=== PATIENT | male | born 1945 | race Hispanic/Latino ===

== ENCOUNTER 2017-12-04 21:54 | Emergency (ER) | payer MEDICARE, BC ==
[2017-12-05 03:05] LABS: Bilirubin Negative (Negative); Blood, Urine Negative (Negative); Clarity CLEAR (Clear); Glucose, Urine (Dipstick) Negative (Negative); Leukocyte Negative (Negative); Nitrite Negative (Negative); Protein, Urine (Dipstick) 30 mg/dL (Neg-Trace); Specific Gravity, Urine 1.021 (1.002-1.036); Urobilinogen 0.2 mg/dL (0.2-1.0); pH, Urine 5.5 (5.0-9.0)
[2017-12-05 03:07] LABS: #Basophils 0.1 thou/uL (0.0-0.2); #Eosinphils 0.3 thou/uL (0.0-0.7); #Lymphocytes 2.4 thou/uL (1.20-3.40); #Monocytes 0.5 thou/uL (0.11-0.59); #Neutrophils 4.6 thou/uL (1.40-6.50); %Basophils 0.7 % (0.0-1.0); %Eosinophils 3.7 % (0.0-10.0); %Lymphocytes 30.7 % (21.0-51.0); %Monocytes 5.8 % (0.0-10.0); Hemoglobin 14.5 g/dL (14.0-18.0); Mean Corpuscular HGB CONC 34.6 g/dL (32.0-36.0); Mean Corpuscular Hemoglobin 33.7 pg (27.0-31.0); Mean Corpuscular Volume 97.5 fL (78.0-98.0); Mean Platelet Volume 9.5 fL (7.4-10.4); Platelet Count 157 thou/uL (130-400); RBC Distribution Width 12.7 % (11.5-14.5); White Blood Cell (WBC) Count 7.8 thou/uL (4.8-10.8)
[2017-12-05 03:08] LABS: Bacteria/HPF None Seen HPF (None Seen); Hyaline Casts/LPF 0-3 HYALINE CAST LPF (0-3 Hyaline); Pathc Cast-AUWi Flag 0.14 (0-2.49); RBC/HPF 0-3 HPF (0-3); Squamous Epithelial 0-3 HPF (0-3); WBC/HPF 0-3 HPF (0-3)
[2017-12-05 03:14] LABS: Amphetamine Not Detected (NotDetected); Barbiturates Screen Not Detected (NotDetected); Benzodiazepine Screen Not Detected (NotDetected); Cocaine Metabolite Screen Not Detected (NotDetected); Medtox Control Line Valid? VALID (VALID); Medtox Reader # READER 1; Methadone Not Detected (NotDetected); Methamphetamine Not Detected (NotDetected); Opiate Screen Not Detected (NotDetected); Oxycodone Screen Not Detected (NotDetected); Phencyclidine (PCP) Not Detected (NotDetected); THC/Cannabinoid Screen Not Detected (NotDetected); Tricyclic Screen Not Detected (NotDetected)
[2017-12-05 03:25] LABS: ALT (SGPT) 31 U/L (8-55); AST (SGOT) 27 U/L (5-34); Albumin 4.7 g/dL (3.4-4.8); Alkaline Phosphatase 56 U/L (40-150); Anion Gap 15 mmol/L (10-20); BUN (Urea Nitrogen) 18 mg/dL (8.4-25.7); Bilirubin, Total 0.8 mg/dL (0.2-1.2); CK (CPK) 343 U/L (30-200); Calc. Creatinine Clearance 0 mL/min (70-130); Calcium 9.3 mg/dL (7.8-10.44); Carbon Dioxide 22 mmol/L (23-31); Chloride 107 mmol/L (98-107); Estimated GFR-MDRD 73; Globulin 3.4 g/dL (2.4-3.5); Glucose 104 mg/dL (83-110); Potassium 4.5 mmol/L (3.5-5.1); Protein, Total 8.1 g/dL (5.8-8.1); Sodium 139 mmol/L (136-145)
[2017-12-05 03:26] LABS: Acetaminophen Less than 6.0 mcg/mL (10.0-30.0); Alcohol Less than 10 mg/dL (Less than 10); Salicylate Less than 8.0 mg/dL (15.0-30.0)
[2017-12-05] MEDS ORDERED: hydrALAZINE 20 MG/ML VIAL ONE (03:48)
--- NOTE | 2017-12-05 07:54 | RAD ---
LEFT FOOT 3 VIEWS: HISTORY: Pain. COMPARISON: None. FINDINGS: There are vascular calcifications. Lisfranc alignment is maintained. No fracture. No cortical irre gularity or periosteal reaction. IMPRESSION: 1. Unremarkable 3 views left foot. 2. Vascular calcifications are noted. POS: [facility]
--- NOTE | 2017-12-05 12:26 | CT ---
PRELIMINARY REPORT/[facility]/EMERGENTY AFTER-HOURS PROCEDURE CT Lumbar Spine With Intravenous Contrast CLINICAL HISTORY: 72 years old, male; Pain; Other: Left leg pain/weakness; Additional info: 72 year old m with hld, HTN who presents to the ed for left leg pain and left foot drop. Foot drop started 3 weeks ago. terry carr noticed it when he was trying to run and his toes kept rubbing on the ground. This has been consta nt since its onset. Tonight, while bowling, the patient started having left leg pain. Beginning mid t o upper left thigh and all the way down the front on his lower leg. He states that it is worsened wit h walking TECHNIQUE: Axial computed tomography images of the lumbar spine with intravenous contrast. COMPARISON: No relevant prior studies available. FINDINGS: On axial CT images, no definite acute fracture is visible. Sagittal and coronal reconstructions show no fracture or subluxation. Mild degenerative disc changes and moderate facet joint arthritis at multiple levels. Relatively mild broad-based bulging of the disc annulus from L2-3 through L5-S1. No definite/significant focal disc herniation by CT, MRI might be more sensitive if clinically indica chaparro. Possible cholelithiasis versus calcified gallbladder wall. Moderate aortic and other vascular calcifications. No evidence for abdominal aortic aneurysm. IMPRESSION: No definite acute fracture or subluxation by CT. Other findings discussed above. Thank you for allowing us to participate in the care of your patient. Dictated and Authenticated by: Gerald Hill MD 12/05/2017 5:57 AM Central Time ([place] & [place]) FINAL REPORT CT LUMBAR SPINE WITH CONTRAST: Date: 12/05/17 HISTORY: Left leg pain. Left foot drop. Symptoms started 3 weeks ago. COMPARISON: None. FINDINGS/IMPRESSION: This report is in agreement with the preliminary report by [facility]. Lumbar spine vertebral body height is maintained. There is no fracture or malalignment. There are deg enerative changes of the lumbar spine without high grade central canal stenosis. Varying degrees of m ild to moderate foraminal narrowing are noted. There is a left paracentral disc bulge at L5-S1, along with a generalized disc bulge at L4-L5. Evaluation is limited by technique. At T12-L1, there appears to be a broad based disc osteophyte complex with at least moderate central canal stenosis. MRI would be beneficial. Possible calcified gallbladder wall versus cholelithiasis is noted. Normal caliber appendix is identi fied. There is diverticulosis of the visualized sigmoid colon. No diverticulitis. Atherosclerosis of the aorta is identified. POS: [facility]
--- NOTE | 2017-12-05 12:27 | CT ---
PRELIMINARY REPORT/[facility]/EMERGENTY AFTER-HOURS PROCEDURE CT Head Without Intravenous Contrast CLINICAL HISTORY: 72 years old, male; Signs and symptoms; Walking, difficulty and weakness, extremity; Left; Additional info: 72 year old m with hld, HTN who presents to the ed for left leg pain and left foot drop. Foot drop started 3 weeks ago. first noticed it when he was trying to run and his toes kept rubbing on the ground. This has been constant since its onset. Tonight, while bowling, the patient st arted having left leg pain. Beginning mid to upper left thigh and all the way down the front on his l ower leg. He states that it is worsened with walking TECHNIQUE: Axial computed tomography images of the head/brain without intravenous contrast. COMPARISON: No relevant prior studies available. FINDINGS: No definite acute skull fracture. Included paranasal sinuses are essentially clear. No acute intracranial hemorrhage or mass effect. Ventricle size is normal for age. No definite acute infarct by CT. MRI could be more sensitive/specific for detection, as clinically di rected. IMPRESSION: No acute intracranial bleed or mass effect. No definite acute infarct by CT, see above. Thank you for allowing us to participate in the care of your patient. Dictated and Authenticated by: Gerald Hill MD 12/05/2017 5:39 AM Central Time ([place] & [place]) FINAL REPORT CT HEAD NONCONTRAST: DATE: 12/05/17. TIME: Performed on an emergency basis at 0422 hours. HISTORY: Weakness. Altered mental status. FINDINGS: NO comparison. There is no evidence of acute intracranial hemorrhage or infarct. Chronic ischemic s mall-vessel disease is apparent within the periventricular white matter of each cerebral hemisphere, most notably at the left frontal lobe. POS: [facility]
[2017-12-05] MEDS ORDERED: ISOVUE-370 76%-LOCM 1 ML ONE (14:18)
--- NOTE | 2017-12-07 19:40 | EKG ---
Test Reason : Blood Pressure : / mmHG Vent. Rate : 062 BPM Atrial Rate : 062 BPM P-R Int : 142 ms QRS Dur : 084 ms QT Int : 408 ms P-R-T Axes : 014 008 074 degrees QTc Int : 414 ms Normal sinus rhythm Nonspecific ST abnormality Abnormal ECG Confirmed by ALFREDO WHARTON M.D. ([id number]), magazine editor CYNDI VALENZUELA ([id number]) on 12/07/2017 7:38:28 PM Referred By: Confirmed By:ALFREDO WHARTON M.D.
== END 2017-12-05 06:08 | disposition home or self-care (01) ==
LOC: ERS 21:54
DX: M21.42 Flat foot [pes planus] (acquired), left foot (principal); E78.5 Hyperlipidemia, unspecified; I10 Essential (primary) hypertension; F41.9 Anxiety disorder, unspecified; F32.9 Major depressive disorder, single episode, unspecified; Z79.82 Long term (current) use of aspirin; Z79.899 Other long term (current) drug therapy
CPT/HCPCS: 36415; 70450; 72132; 80053; 80306; 80307; 81003; 81015; 82550; 85025; 85652; 86140; 87086; 93005; J0360

== ENCOUNTER 2017-12-25 07:39 | Outpatient (CLI) | payer MEDICARE, BC ==
--- NOTE | 2017-12-25 09:24 | MRI ---
NONCONTRAST MRI BRAIN: Date: 12/25/17 HISTORY: Left leg weakness. Patient complains of left foot drop for 1 week. COMPARISON: CT head on 12/05/17. FINDINGS: There are multiple scattered punctate, as well as patchy areas of increased FLAIR and T2-weighted sig nal intensity seen within the periventricular and subcortical white matter, which are nonspecific but likely reflective of chronic small vessel ischemic changes. There is no evidence of an acute infarct ion. Septum pellucidum and third ventricle are in the midline. There is mild cerebral volume loss. The dharmesh tricular system is normal in size, shape, and position for the degree of sulcal atrophy. Appropriate flow-voids are demonstrated at the base of the brain. Incidental note is made of a partially empty se lla turcica. The orbits, paranasal sinuses, and skull base have a normal MRI appearance. There is prominent pannus formation at the region of the transverse ligament at the articulation with the odontoid with anterior arch of C1. IMPRESSION: 1. No acute intracranial abnormalities demonstrated. 2. Nonspecific signal abnormalities within the cerebral hemispheres bilaterally, which are nonspecif ic, but likely attributable to chronic small vessel ischemic changes. 3. Mild cerebral volume loss. POS: [facility]
== END 2017-12-25 07:40 | disposition home or self-care (01) ==
LOC: TBSIIMAG 07:39
PROVIDERS: ATTEND Family Medicine
DX: R29.898 Other symptoms and signs involving the musculoskeletal system (principal); R90.89 Other abnormal findings on diagnostic imaging of central nervous system
CPT/HCPCS: 70551

== ENCOUNTER 2018-01-25 22:23 | Emergency (ER) | payer MEDICARE, BC ==
[2018-01-26] MEDS ORDERED: HYDROcodone/Acetaminophen 5/325 mg Tablet ONE (00:04)
[2018-01-26] MEDS ORDERED: Ketorolac Tromethamine 30 MG/ML VIAL ONE (01:27)
--- NOTE | 2018-01-26 10:00 | RAD ---
LUMBAR SPINE 3 VIEWS: Date: 01/25/18 HISTORY: Trauma. Injury to back. Comparison made to recent CT lumbar spine dated 12/05/17. FINDINGS: There is now anterior wedge compression of the L1 vertebra, which has occurred since the CT of . Mild irregularity of the anterior cortex with superior end plate depression is noted. Loss of ant erior height estimated in the 15-20% range. Posterior alignment is preserved. The other lumbar vertebra maintain height and alignment. Degenerati ve changes again noted with osteophytes and facet hypertrophy. IMPRESSION: Anterior wedge compression of L1 vertebra is now noted, new when compared to CT of 12/05/17. These findings were relayed to the charge nurse in the ER at the time of dictation. CODE CR. POS: [facility]
== END 2018-01-26 03:38 | disposition home or self-care (01) ==
LOC: ERS 22:23
DX: S32.019A Unspecified fracture of first lumbar vertebra, initial encounter for closed fracture (principal); F41.9 Anxiety disorder, unspecified; I10 Essential (primary) hypertension; E78.5 Hyperlipidemia, unspecified; F32.9 Major depressive disorder, single episode, unspecified; Z79.82 Long term (current) use of aspirin; Z79.899 Other long term (current) drug therapy; W19.XXXA Unspecified fall, initial encounter
CPT/HCPCS: 72100; 93005; 94760; 96372; J1885

== ENCOUNTER 2018-02-04 12:56 | Outpatient (CLI) | payer MEDICARE, BC ==
--- NOTE | 2018-02-04 14:56 | RAD ---
LUMBAR SPINE 3 VIEWS: Date: 02/04/18 HISTORY: Compression fracture. COMPARISON: Radiograph dated 01/26/18. FINDINGS: The compression fracture at L1 has similar anterior height loss, approximately 20-25%. No new acute s uperimposed fracture or malalignment. Mild narrowing L4-5 and L5-S1 disc spaces. IMPRESSION: Unchanged L1 compression fracture. POS: [facility]
== END 2018-02-04 12:57 | disposition home or self-care (01) ==
LOC: TBSIIMAG 12:56
PROVIDERS: ATTEND Neurological Surgery
DX: M48.56XD Collapsed vertebra, not elsewhere classified, lumbar region, subsequent encounter for fracture with routine healing (principal)
CPT/HCPCS: 72100

== ENCOUNTER 2018-02-13 15:33 | Outpatient (CLI) | payer MEDICARE, BC ==
--- NOTE | 2018-02-13 18:45 | MRI ---
MRI CERVICAL SPINE 02/13/18 HISTORY: Myelopathy, G95.9. Multiplanar and multisequence noncontrast enhanced MRI images cervical spine obtained. MRI images demonstrate extensive motion artifact which significantly degrades the quality of this exa m. C1-2: Unremarkable. C2-3: Unremarkable. C3-4: There is a mild broad based disc bulge without evidence of significant central stenosis. The ne ural foramen are patent. C4-5: Disc desiccation is seen. There is a broad based mild disc bulge with minimal but not significa nt degree of central stenosis. There is minimal bilateral neural foraminal narrowing. C5-6: Disc desiccation is seen. There is a broad based disc bulge resulting in minimal but not signif icant degree of central stenosis. There is moderate bilateral C5-6 neural foraminal narrowing due to uncovertebral osteophyte hypertrophy. C6-7: Unremarkable. C7-T1: Unremarkable. IMPRESSION: Broad based central disc bulge with neural foraminal narrowing as described above. No significant neri dence of cord compression seen. No significant myelomalacic changes seen. Exam quality is less than o ptimum due to patient motion. POS: [facility]
== END 2018-02-13 15:34 | disposition home or self-care (01) ==
LOC: SCSMRI 15:33
PROVIDERS: ATTEND Psychiatry & Neurology Neurology
DX: M50.01 Cervical disc disorder with myelopathy, high cervical region (principal); M48.02 Spinal stenosis, cervical region
CPT/HCPCS: 72141

== ENCOUNTER 2018-03-03 15:16 | Outpatient (CLI) | payer MEDICARE, BC ==
--- NOTE | 2018-03-03 19:44 | MRI ---
MRI THORACIC SPINE WITHOUT CONTRAST: 03/03/2018 HISTORY: Myelopathy. Pain. TECHNIQUE: Multiplanar, multisequence MR imaging of the thoracic spine is provided with and without contrast. FINDINGS: There is a vertebral body fracture involving the L1 level. The fracture line involves the posterior cortex with mild retropulsion, consistent with a burst fracture of L1, an unstable fracture. This fr acture was seen on lumbar spine radiographs performed on 02/04/2018. The degree of vertebral body he ight loss, anteriorly, at L1, is estimated at 20%, similar when compared to the lumbar spine radiogra phs performed on 02/04/2018. Increased T2 signal intensity, on the basis of edema, extends into the pedicles bilaterally at L1. No discrete fracture is seen involving the pedicles, but assessment woul d be better performed via CT. STIR imaging demonstrates no additional area of osseous marrow edema. No acute fracture is seen invo lving the thoracic spine. There is no anterolisthesis or retrolisthesis noted. There is no significant central canal or neural foraminal stenosis noted within the thoracic spine. There is no focal area of signal abnormality identified within the thoracic cord. IMPRESSION: Edema persists within the L1 burst fracture. There is also edema within the bilateral pedicles. Ded icated CT examination of the lumbar spine is assessed to evaluate the full extent of the lumbar spine fracture. No significant central canal or neural foraminal stenosis is seen within the thoracic spi ne. MENDEL Mathis made aware at the time of interpretation on 03/03/2018. POS: [facility]
== END 2018-03-03 15:17 | disposition home or self-care (01) ==
LOC: SCSMRI 15:16
PROVIDERS: ATTEND Psychiatry & Neurology Neurology
DX: G95.9 Disease of spinal cord, unspecified (principal); S32.011A Stable burst fracture of first lumbar vertebra, initial encounter for closed fracture
CPT/HCPCS: 72146

== ENCOUNTER 2018-03-04 14:01 | Outpatient (CLI) | payer MEDICARE, BC ==
--- NOTE | 2018-03-04 14:44 | RAD ---
TWO-THREE VIEWS LUMBAR SPINE SERIES: Comparison: 02-04-18 Indication: Fall with low back pain. FINDINGS: Stable mild to moderate anterior wedge compression fracture of L1. Alignment is grossly stable. Multi level endplate degenerative changes and facet osteoarthritis is again seen. There is atherosclerosis incidentally noted. Radiopaque densities overlie the pelvis bilaterally. IMPRESSION: Stable mild to moderate anterior L1 wedge compression fracture. POS: [facility]
== END 2018-03-04 14:02 | disposition home or self-care (01) ==
LOC: TBSIIMAG 14:01
PROVIDERS: ATTEND Physician Assistant
DX: M48.56XA Collapsed vertebra, not elsewhere classified, lumbar region, initial encounter for fracture (principal)
CPT/HCPCS: 72100

== ENCOUNTER 2018-03-14 13:11 | Outpatient (CLI) | payer MEDICARE, BC ==
--- NOTE | 2018-03-14 15:43 | MRI ---
MRI LUMBAR SPINE WITHOUT CONTRAST: HISTORY: M48.56XA. M21.372. Compression fracture, left foot drop. COMPARISON: Lumbar spine radiograph from 03/04/2018. FINDINGS: Similar appearance of the A3 AO spine classification incomplete burst fracture superior end plate of L1 with unchanged anterior height loss as well as retropulsion. There is narrowing of the ventral CS F space with abutment of the anterior cord. Improving edema of the posterior elements. No new acute superimposed fracture or malalignment. The conus medullaris terminates near the inferior end plate of L1. Levels are as follows: T12-L1: There is posterior superior displacement of the posterior superior end plate of L1 narrowing the ventral CSF space abutting the anterior cord. No significant neural foraminal narrowing. L1-2: Mild increased disk signal. No disk protrusion. Mild facet arthropathy. No significant neur al foraminal or spinal canal narrowing. L2-3: Low-grade circumferential disk bulge. Mild hypertrophic facet changes. Mild bilateral neural foraminal narrowing. There is mild increased posterior epidural fat. Spinal canal measures approxi mately 6 mm. Bilateral subforaminal posterior disk-osteophyte complexes are small. L3-4: Mild disk desiccation. There are moderate left and mild right-sided subforaminal posterior di sk-osteophyte complexes. Moderate bilateral neural foraminal narrowing. Moderate facet arthropathy. There is abutment of the exiting and traversing left and right nerve roots. L4-5: Mild disk desiccation. Moderate-sized bilateral subforaminal posterior disk-osteophyte comple xes. Moderate fact arthropathy. Moderate bilateral neural foraminal narrowing with abutment of both the exiting and traversing nerve roots. L5-S1: Mild disk desiccation. There is a central annular fissure. Moderate bilateral subforaminal and posterior disk-osteophyte complexes with moderate facet arthrosis. Moderate bilateral neural for aminal narrowing with abutment of both exiting and traversing nerve roots. IMPRESSION: 1. Moderately advanced spondylosis as described above primarily involving nerve root abutment at mul tiple levels. 2. Similar appearance of the AO spine thoracolumbar classification A3 incomplete burst fracture of L 1. There is posterior displacement of the posterior superior end plate of L1 with abutment of the an terior cord. POS: [facility]
== END 2018-03-14 13:12 | disposition home or self-care (01) ==
LOC: SCSMRI 13:11
PROVIDERS: ATTEND Neurological Surgery
DX: M21.372 Foot drop, left foot (principal); M48.56XA Collapsed vertebra, not elsewhere classified, lumbar region, initial encounter for fracture; M47.816 Spondylosis without myelopathy or radiculopathy, lumbar region; S32.011A Stable burst fracture of first lumbar vertebra, initial encounter for closed fracture
CPT/HCPCS: 72148

== ENCOUNTER 2018-12-08 10:09 | Outpatient (CLI) | payer MEDICARE, BC ==
--- NOTE | 2018-12-08 13:07 | MRI ---
MRI OF THE THORACIC SPINE WITHOUT CONTRAST: INDICATION: History of fall with mid to low back pain. COMPARISON: Prior MRI of the thoracic spine dated 03/03/2018. FINDINGS: There has been interval healing of the wedge compression abnormality at L1. No new fracture is evide nt. The spinal cord demonstrates a normal signal intensity. Remote retropulsed bone fragments from the posterior superior margin of the L1 compression fracture in addition to a disk-osteophyte complex causing mild ventral effacement of the distal spinal cord without definite cord signal abnormality. The remaining intervertebral levels of the thoracic spine demonstrate no significant central canal or neural foraminal narrowing. There is minimal multilevel disk degenerative and facet osteoarthritic change. No bone marrow signal abnormality is evident. Visualized aspects of the paravertebral soft tissues a ppear within normal limits. IMPRESSION: 1. Interval healing of the previously seen wedge compression abnormality of L1. Some retropulsed delisa ne fragments in addition to a disk-osteophyte complex at T12-L1 induces mild central canal narrowing with mild ventral effacement of the distal spinal cord without definite cord signal abnormality. 2. Mild multilevel spondylosis of the thoracic spine. 3. No acute fracture demonstrated. POS: [facility]
== END 2018-12-08 10:10 | disposition home or self-care (01) ==
LOC: SCSMRI 10:09
PROVIDERS: ATTEND Psychiatry & Neurology Neurology
DX: M47.24 Other spondylosis with radiculopathy, thoracic region (principal); M25.78 Osteophyte, vertebrae; M48.05 Spinal stenosis, thoracolumbar region; R93.7 Abnormal findings on diagnostic imaging of other parts of musculoskeletal system
CPT/HCPCS: 72146

== ENCOUNTER 2021-02-18 15:48 | Inpatient (IN) | payer MEDICARE, BC ==
[2021-02-18 18:15] VITALS: BMI 31.9
[2021-02-18] MEDS ORDERED: Ondansetron ODT 4 MG TAB PO PRN (20:03)
[2021-02-18] MEDS ORDERED: Ondansetron PF 4 MG/2 ML Vial IVP PRN (20:03)
[2021-02-18 21:20] LABS: Bilirubin Negative (Negative); Blood, Urine 2+ (Negative); Clarity Turbid (Clear); Glucose, Urine (Dipstick) Normal (Negative); Ketone, Urine Negative (Negative); Leukocyte 25 Leu/uL (Negative); Nitrite Negative (Negative); Protein, Urine (Dipstick) 70 mg/dL (Neg-Trace); RBC/HPF 0-3 HPF (0-3); Specific Gravity, Urine 1.023 (1.002-1.036); Squamous Epithelial 0-3 HPF (0-3); Urobilinogen Normal mg/dL (Less than 2); pH, Urine 5.5 (5.0-9.0)
[2021-02-18 21:27] LABS: Bacteria/HPF 2+ HPF (None Seen)
[2021-02-18 21:30] LABS: Urine Culture Reflex Yes Yes
[2021-02-18] MEDS: Sodium Chloride 0.9% 1,000 ML IV SCH (22:26)
[2021-02-19] MEDS ORDERED: Cefepime 2 GM in Sodium Chloride 0.9% 100 ML IVPB SCH ×3 (00:17→02:00)
[2021-02-19] MEDS ORDERED: Enoxaparin Sodium 40 MG/0.4 ML SYRINGE SC SCH (09:00)
[2021-02-19] MEDS: Sodium Chloride 0.9% 1,000 ML IV SCH (15:02)
[2021-02-19] MEDS: Cefepime 2 GM in Sodium Chloride 0.9% 100 ML IVPB SCH (15:02)
[2021-02-20] MEDS: Acetaminophen 650 MG Suppository PR PRN ×2 (00:13→04:08)
[2021-02-20] MEDS: Labetalol HCl 100 MG/20 ML VIAL SLOW IVP PRN ×3 (00:41→20:55)
[2021-02-20] MEDS: Sodium Chloride 0.9% 1,000 ML IV SCH (01:47)
[2021-02-20] MEDS: Cefepime 2 GM in Sodium Chloride 0.9% 100 ML IVPB SCH ×2 (01:47→13:42)
[2021-02-20 07:43] LABS: #Basophils 0.3 thou/uL (0.0-0.2); #Lymphocytes 0.7 thou/uL (1.20-3.40); #Monocytes 0.4 thou/uL (0.11-0.59); #Neutrophils 9.9 thou/uL (1.40-6.50); %Basophils 2.3 % (0.0-1.0); %Eosinophils 0.4 % (0.0-10.0); %Lymphocytes 6.2 % (21.0-51.0); %Monocytes 3.3 % (0.0-10.0); %Neutrophils 87.8 % (42.0-75.0); Hemoglobin 13.1 g/dL (14.0-18.0); Mean Corpuscular HGB CONC 33.3 g/dL (32.0-36.0); Mean Corpuscular Hemoglobin 32.2 pg (27.0-31.0); Mean Corpuscular Volume 96.4 fL (78.0-98.0); Mean Platelet Volume 8.6 fL (7.4-10.4); Platelet Count 123 thou/uL (130-400); Red Blood Cell (RBC) Count 4.09 mill/uL (4.70-6.10); White Blood Cell (WBC) Count 11.2 thou/uL (4.8-10.8)
[2021-02-20 08:03] LABS: Anion Gap 15 mmol/L (10-20); BUN (Urea Nitrogen) 15 mg/dL (8.4-25.7); Calc. Creatinine Clearance 91 mL/min (70-130); Calcium 8.8 mg/dL (7.8-10.44); Carbon Dioxide 19 mmol/L (23-31); Chloride 110 mmol/L (98-107); Glucose 92 mg/dL (83-110); Potassium 3.9 mmol/L (3.5-5.1); Sodium 140 mmol/L (136-145)
[2021-02-20] MEDS ORDERED: Furosemide 20 MG/2 ML VIAL SLOW IVP SCH (10:15)
[2021-02-20] MEDS: Acetaminophen 325 MG TAB PO PRN ×2 (15:00→23:23)
[2021-02-20] MEDS: Baclofen 10 MG TAB PO SCH ×2 (17:59→20:24)
[2021-02-20] MEDS: Gabapentin 300 MG CAP PO SCH (20:24)
[2021-02-20] MEDS ORDERED: Methyl Salicylate/Menthol 85 GM TUBE TOP PRN (22:59)
[2021-02-21] MEDS: Cefepime 2 GM in Sodium Chloride 0.9% 100 ML IVPB SCH ×2 (02:39→13:07)
[2021-02-21 05:51] LABS: #Eosinphils 0.2 thou/uL (0.0-0.7); #Lymphocytes 1.1 thou/uL (1.20-3.40); #Monocytes 0.5 thou/uL (0.11-0.59); #Neutrophils 7.1 thou/uL (1.40-6.50); %Basophils 0.2 % (0.0-1.0); %Eosinophils 2.6 % (0.0-10.0); %Lymphocytes 12.3 % (21.0-51.0); %Monocytes 5.6 % (0.0-10.0); %Neutrophils 79.4 % (42.0-75.0); Hemoglobin 12.8 g/dL (14.0-18.0); Mean Corpuscular HGB CONC 34.5 g/dL (32.0-36.0); Mean Corpuscular Hemoglobin 33.1 pg (27.0-31.0); Mean Platelet Volume 8.6 fL (7.4-10.4); Platelet Count 123 thou/uL (130-400); Red Blood Cell (RBC) Count 3.87 mill/uL (4.70-6.10)
[2021-02-21 06:05] LABS: Anion Gap 13 mmol/L (10-20); BUN (Urea Nitrogen) 20 mg/dL (8.4-25.7); Calc. Creatinine Clearance 77 mL/min (70-130); Calcium 8.9 mg/dL (7.8-10.44); Carbon Dioxide 22 mmol/L (23-31); Chloride 108 mmol/L (98-107); Glucose 89 mg/dL (83-110); Potassium 3.5 mmol/L (3.5-5.1); Sodium 139 mmol/L (136-145)
[2021-02-21] MEDS ORDERED: BIOTIN 5 MG PO SCH (09:00)
[2021-02-21] MEDS: Gabapentin 300 MG CAP PO SCH ×2 (09:07→20:47)
[2021-02-21] MEDS: Aspirin 81 mg Enteric Coated Tablet PO SCH (09:07)
[2021-02-21] MEDS: Citalopram 20 MG TAB PO SCH (09:08)
[2021-02-21] MEDS: Atorvastatin Calcium 10 MG TAB PO SCH (09:08)
[2021-02-21] MEDS: Amlodipine 5 MG TAB PO SCH (09:08)
[2021-02-21] MEDS: Ascorbic Acid 500 mg Chewable Tablet PO SCH (09:08)
[2021-02-21] MEDS: Baclofen 10 MG TAB PO SCH ×3 (09:08→20:47)
[2021-02-21] MEDS: Metoprolol Tartrate 50 MG TAB PO SCH (09:08)
[2021-02-21] MEDS: Cholecalciferol 1,000 UNITS (25 MCG) TAB PO SCH (09:08)
[2021-02-21] MEDS: Cyanocobalamin (Vitamin B-12) 1,000 MCG TAB PO SCH (09:08)
[2021-02-21] MEDS: Fish Oil 1,000 MG CAP PO SCH (09:09)
[2021-02-21] MEDS: RILUZOLE 50 MG PO SCH (16:30)
[2021-02-22] MEDS: Cefepime 2 GM in Sodium Chloride 0.9% 100 ML IVPB SCH (01:31)
[2021-02-22] MEDS: RILUZOLE 50 MG PO SCH (06:07)
[2021-02-22 08:19] VITALS: TEMP 98.2
[2021-02-22] MEDS: Atorvastatin Calcium 10 MG TAB PO SCH (08:26)
[2021-02-22] MEDS: Citalopram 20 MG TAB PO SCH (08:26)
[2021-02-22] MEDS: Baclofen 10 MG TAB PO SCH (08:26)
[2021-02-22] MEDS: Aspirin 81 mg Enteric Coated Tablet PO SCH (08:26)
[2021-02-22] MEDS: Fish Oil 1,000 MG CAP PO SCH (08:26)
[2021-02-22] MEDS: Gabapentin 300 MG CAP PO SCH (08:45)
[2021-02-22] MEDS: Cyanocobalamin (Vitamin B-12) 1,000 MCG TAB PO SCH (08:45)
[2021-02-22] MEDS: Metoprolol Tartrate 50 MG TAB PO SCH (08:45)
[2021-02-22] MEDS: Ascorbic Acid 500 mg Chewable Tablet PO SCH (08:45)
[2021-02-22] MEDS: Amlodipine 5 MG TAB PO SCH (08:45)
[2021-02-22] MEDS: Cholecalciferol 1,000 UNITS (25 MCG) TAB PO SCH (08:45)
[2021-02-22 09:56] VITALS: BP 137/67
== END 2021-02-22 14:00 | disposition home health service (06) | DRG 871 ==
LOC: IMCU/EMU 15:48 → ONC 02-19 12:23
PROVIDERS: ADMIT Internal Medicine; ATTEND Family Medicine
DX: A41.51 Sepsis due to Escherichia coli [E. coli] (principal); J69.0 Pneumonitis due to inhalation of food and vomit; I21.A1 Myocardial infarction type 2; J96.01 Acute respiratory failure with hypoxia; G12.21 Amyotrophic lateral sclerosis; E87.2 Acidosis; G82.20 Paraplegia, unspecified; N17.9 Acute kidney failure, unspecified; N39.0 Urinary tract infection, site not specified; Z20.822 Contact with and (suspected) exposure to COVID-19; I10 Essential (primary) hypertension; E78.2 Mixed hyperlipidemia; R65.20 Severe sepsis without septic shock; F41.9 Anxiety disorder, unspecified; F32.A Depression, unspecified; I65.22 Occlusion and stenosis of left carotid artery; E86.0 Dehydration; Z74.01 Bed confinement status; Z88.5 Allergy status to narcotic agent; Z88.8 Allergy status to other drugs, medicaments and biological substances; Z79.82 Long term (current) use of aspirin; Z79.899 Other long term (current) drug therapy
CPT/HCPCS: 36415; 71045; 74230; 80048; 81001; 85025; 87086; 94640; J0692; J1940; J3490; J7050; J7620

== ENCOUNTER 2021-04-19 06:23 | Day surgery (SDC) | payer OTHER ==
[2021-04-17 09:50] VITALS: BMI 34.4
[2021-04-19 12:31] LABS: SARS-CoV-2 PCR by NAA Not Detected (NotDetected)
[2021-04-19] MEDS ORDERED: Fentanyl 100 MCG/2 ML VIAL ONE (13:01)
[2021-04-19] MEDS ORDERED: ceFAZolin 2 GM/Dextrose 50 ML IVPB ONE (13:47)
[2021-04-19] MEDS ORDERED: Lidocaine 1% PF 5 ML VIAL ONE (13:58)
[2021-04-19] MEDS ORDERED: PROPOFOL 200 MG/20 ML VIAL ONE (13:58)
== END 2021-04-19 16:20 | disposition home or self-care (01) ==
LOC: SDC 06:23
PROVIDERS: ATTEND Internal Medicine Gastroenterology
PROC: 0DH63UZ Insertion of Feeding Device into Stomach, Percutaneous Approach (ICD-10-PCS; principal; 2021-04-19)
DX: R13.10 Dysphagia, unspecified (principal); G12.21 Amyotrophic lateral sclerosis; M19.90 Unspecified osteoarthritis, unspecified site; I10 Essential (primary) hypertension; E78.00 Pure hypercholesterolemia, unspecified; I25.10 Atherosclerotic heart disease of native coronary artery without angina pectoris; Z79.82 Long term (current) use of aspirin; Z79.899 Other long term (current) drug therapy; Z88.5 Allergy status to narcotic agent; Z88.8 Allergy status to other drugs, medicaments and biological substances; Z95.5 Presence of coronary angioplasty implant and graft; Z20.822 Contact with and (suspected) exposure to COVID-19
CPT/HCPCS: J0690; J3010; U0003; U0005

== ENCOUNTER 2021-05-05 23:22 | Inpatient (IN) | payer BC, MEDICARE ==
[2021-05-06] MEDS ORDERED: cefTRIAXone\\ROCEPHIN 2 GM VIAL ONE (00:05)
[2021-05-06 00:15] LABS: #Lymphocytes 0.6 thou/uL (1.20-3.40); #Monocytes 0.5 thou/uL (0.11-0.59); #Neutrophils 8.3 thou/uL (1.40-6.50); %Basophils 0.3 % (0.0-1.0); %Eosinophils 0.4 % (0.0-10.0); %Lymphocytes 6.8 % (21.0-51.0); %Monocytes 5.1 % (0.0-10.0); %Neutrophils 87.5 % (42.0-75.0); Hemoglobin 12.1 g/dL (14.0-18.0); Mean Corpuscular HGB CONC 33.2 g/dL (32.0-36.0); Mean Corpuscular Hemoglobin 33.2 pg (27.0-31.0); Mean Platelet Volume 8.5 fL (7.4-10.4); Platelet Count 181 thou/uL (130-400); Red Blood Cell (RBC) Count 3.65 mill/uL (4.70-6.10); White Blood Cell (WBC) Count 9.4 thou/uL (4.8-10.8)
[2021-05-06 00:36] LABS: ALT (SGPT) 10 U/L (8-55); AST (SGOT) 11 U/L (5-34); Albumin 4.2 g/dL (3.4-4.8); Alkaline Phosphatase 49 U/L (40-110); Anion Gap 14 mmol/L (10-20); BUN (Urea Nitrogen) 27 mg/dL (8.4-25.7); Bilirubin, Total 0.5 mg/dL (0.2-1.2); Calc. Creatinine Clearance 0 mL/min (70-130); Calcium 9.1 mg/dL (7.8-10.44); Carbon Dioxide 21 mmol/L (23-31); Chloride 105 mmol/L (98-107); Globulin 3.3 g/dL (2.4-3.5); Glucose 133 mg/dL (83-110); Protein, Total 7.5 g/dL (5.8-8.1); Sodium 135 mmol/L (136-145)
[2021-05-06] MEDS ORDERED: Vancomycin 1.5 GRAM/300 ML BAG 1.5 GM in Premix Bag 1 BAG IVPB SCH (00:45)
[2021-05-06 01:31] LABS: SARS-CoV-2 NAA Rapid Test Not Detected (NotDetected)
[2021-05-06] MEDS ORDERED: Ondansetron ODT 4 MG TAB SL PRN (02:15)
[2021-05-06] MEDS ORDERED: Acetaminophen 325 MG TAB PO PRN (02:15)
[2021-05-06] MEDS ORDERED: Ondansetron PF 4 MG/2 ML Vial IVP PRN (02:15)
[2021-05-06 03:00] LABS: Bilirubin Negative (Negative); Blood, Urine Negative (Negative); Clarity Clear (Clear); Glucose, Urine (Dipstick) Normal (Negative); Ketone, Urine Negative (Negative); Leukocyte Negative Leu/uL (Negative); Nitrite Negative (Negative); Protein, Urine (Dipstick) 10 mg/dL (Neg-Trace); Specific Gravity, Urine 1.015 (1.002-1.036); Urobilinogen Normal mg/dL (Less than 2)
[2021-05-06 03:59] VITALS: BMI 40.0
[2021-05-06 04:16] LABS: Lactic Acid 1.9 mmol/L (0.5-2.2)
[2021-05-06] MEDS ORDERED: Azithromycin 500 MG in Sodium Chloride 0.9% 250 ML 250 ML IVPB SCH (05:00)
[2021-05-06] MEDS: Cefepime 2 GM in Sodium Chloride 0.9% 100 ML IVPB SCH ×2 (09:11→21:45)
[2021-05-06] MEDS: Enoxaparin Sodium 40 MG/0.4 ML SYRINGE SC SCH (09:12)
[2021-05-06] MEDS: guaiFENesin ER 600 MG TAB PO SCH ×2 (09:12→22:18)
[2021-05-06] MEDS: Amlodipine 10 MG TAB PO SCH (21:44)
[2021-05-06] MEDS: Metoprolol Tartrate 50 MG TAB PO SCH (21:45)
[2021-05-06] MEDS: Guaifenesin DM 100-10/5 ML UDCUP PO PRN (22:55)
[2021-05-06] MEDS: Acetaminophen 650 MG/20.3 ML UDCUP PO PRN (22:55)
[2021-05-07 05:27] LABS: #Basophils 0.1 thou/uL (0.0-0.2); #Eosinphils 0.3 thou/uL (0.0-0.7); #Lymphocytes 1.3 thou/uL (1.20-3.40); #Monocytes 0.7 thou/uL (0.11-0.59); #Neutrophils 8.6 thou/uL (1.40-6.50); %Basophils 0.5 % (0.0-1.0); %Lymphocytes 11.5 % (21.0-51.0); %Monocytes 6.6 % (0.0-10.0); %Neutrophils 78.5 % (42.0-75.0); Hemoglobin 12.2 g/dL (14.0-18.0); Mean Corpuscular HGB CONC 33.4 g/dL (32.0-36.0); Mean Corpuscular Hemoglobin 33.8 pg (27.0-31.0); Mean Platelet Volume 8.7 fL (7.4-10.4); Platelet Count 171 thou/uL (130-400); RBC Distribution Width 14.1 % (11.5-14.5); Red Blood Cell (RBC) Count 3.61 mill/uL (4.70-6.10); White Blood Cell (WBC) Count 10.9 thou/uL (4.8-10.8)
[2021-05-07 05:53] LABS: Anion Gap 14 mmol/L (10-20); BUN (Urea Nitrogen) 25 mg/dL (8.4-25.7); Calc. Creatinine Clearance 99 mL/min (70-130); Calcium 9.1 mg/dL (7.8-10.44); Carbon Dioxide 22 mmol/L (23-31); Chloride 106 mmol/L (98-107); Glucose 99 mg/dL (83-110); Potassium 4.8 mmol/L (3.5-5.1); Sodium 137 mmol/L (136-145)
[2021-05-07] MEDS: hydrALAZINE 20 MG/ML VIAL SLOW IVP PRN ×2 (06:53→21:50)
[2021-05-07] MEDS: Cefepime 2 GM in Sodium Chloride 0.9% 100 ML IVPB SCH ×2 (08:27→20:11)
[2021-05-07] MEDS: Metoprolol Tartrate 50 MG TAB PO SCH ×2 (08:28→20:09)
[2021-05-07] MEDS: Citalopram 20 MG TAB PO SCH (08:28)
[2021-05-07] MEDS: Guaifenesin DM 100-10/5 ML UDCUP PO PRN (08:28)
[2021-05-07] MEDS: Aspirin Chewable 81 MG TAB PO SCH (08:29)
[2021-05-07] MEDS: Acetaminophen 650 MG/20.3 ML UDCUP PO PRN ×2 (08:29→20:17)
[2021-05-07] MEDS: Enoxaparin Sodium 40 MG/0.4 ML SYRINGE SC SCH (08:29)
[2021-05-07] MEDS ORDERED: CYANOCOBALAMIN 1000 MCG SL SCH (09:00)
[2021-05-07] MEDS ORDERED: PATIENT'S HOME MEDICATION PO SCH ×2 (12:17→12:18)
[2021-05-07] MEDS: GABAPENTIN 250 MG/5 ML PO SCH (12:31)
[2021-05-07] MEDS: RILUZOLE PO SCH (12:32)
[2021-05-07] MEDS ORDERED: Furosemide 40 MG/4 ML VIAL SLOW IVP SCH (17:30)
[2021-05-07] MEDS: Amlodipine 10 MG TAB PO SCH (20:09)
[2021-05-08] MEDS ORDERED: Ondansetron PF 4 MG/2 ML Vial IVP PRN (00:35)
[2021-05-08] MEDS: hydrALAZINE 20 MG/ML VIAL SLOW IVP PRN (06:30)
[2021-05-08] MEDS: Citalopram 20 MG TAB PO SCH (09:34)
[2021-05-08] MEDS: Aspirin Chewable 81 MG TAB PO SCH (09:34)
[2021-05-08] MEDS: Cefepime 2 GM in Sodium Chloride 0.9% 100 ML IVPB SCH (09:34)
[2021-05-08] MEDS: Metoprolol Tartrate 50 MG TAB PO SCH (09:34)
[2021-05-08] MEDS: Enoxaparin Sodium 40 MG/0.4 ML SYRINGE SC SCH (09:34)
[2021-05-08 12:23] VITALS: BP 186/80; TEMP 98.1
== END 2021-05-08 13:42 | disposition home or self-care (01) | DRG 871 ==
LOC: ERS 23:22 → T4-B 05-06 02:07
PROVIDERS: ADMIT Student in an Organized Health Care Education/Training Program; ATTEND Internal Medicine
DX: A41.9 Sepsis, unspecified organism (principal); J69.0 Pneumonitis due to inhalation of food and vomit; G12.21 Amyotrophic lateral sclerosis; E87.1 Hypo-osmolality and hyponatremia; E87.2 Acidosis; Z20.822 Contact with and (suspected) exposure to COVID-19; E78.00 Pure hypercholesterolemia, unspecified; I10 Essential (primary) hypertension; E78.2 Mixed hyperlipidemia; F41.9 Anxiety disorder, unspecified; D50.9 Iron deficiency anemia, unspecified; I65.22 Occlusion and stenosis of left carotid artery; F32.A Depression, unspecified; Z88.5 Allergy status to narcotic agent; Z88.8 Allergy status to other drugs, medicaments and biological substances; Z86.16 Personal history of COVID-19
CPT/HCPCS: 0240U; 36415; 71045; 80048; 80053; 81003; 83605; 83880; 84484; 85025; 87040; 87086; 93005; 94640; 96365; 96367; J0360; J0456; J0692; J0696; J1650; J1940; J2405; J3370; J3490; J7050; J7620

== ENCOUNTER 2021-09-06 11:28 | Inpatient (IN) | payer MEDICARE, BC ==
[2021-09-06 12:01] LABS: #Basophils 0.1 thou/uL (0.0-0.2); #Eosinphils 0.4 thou/uL (0.0-0.7); #Lymphocytes 1.7 thou/uL (1.20-3.40); #Monocytes 0.5 thou/uL (0.11-0.59); #Neutrophils 14.7 thou/uL (1.40-6.50); %Basophils 0.3 % (0.0-1.0); %Eosinophils 2.6 % (0.0-10.0); %Lymphocytes 9.6 % (21.0-51.0); %Monocytes 2.8 % (0.0-10.0); %Neutrophils 84.7 % (42.0-75.0); Hemoglobin 13.6 g/dL (14.0-18.0); Mean Corpuscular HGB CONC 33.8 g/dL (32.0-36.0); Mean Corpuscular Hemoglobin 32.9 pg (27.0-31.0); Mean Corpuscular Volume 97.6 fL (78.0-98.0); Mean Platelet Volume 8.6 fL (7.4-10.4); Platelet Count 146 thou/uL (130-400); RBC Distribution Width 13.1 % (11.5-14.5); Red Blood Cell (RBC) Count 4.12 mill/uL (4.70-6.10); White Blood Cell (WBC) Count 17.4 thou/uL (4.8-10.8)
[2021-09-06 12:17] LABS: Anion Gap 16 mmol/L (10-20); BUN (Urea Nitrogen) 21 mg/dL (8.4-25.7); Calc. Creatinine Clearance 0 mL/min (70-130); Carbon Dioxide 24 mmol/L (23-31); Chloride 102 mmol/L (98-107); Potassium 4.6 mmol/L (3.5-5.1); Sodium 137 mmol/L (136-145)
[2021-09-06 12:18] LABS: ALT (SGPT) 13 U/L (8-55); AST (SGOT) 17 U/L (5-34); Albumin 4.5 g/dL (3.4-4.8); Alkaline Phosphatase 67 U/L (40-110); Bilirubin, Total 0.9 mg/dL (0.2-1.2); Calcium 9.3 mg/dL (7.8-10.44); Globulin 3.4 g/dL (2.4-3.5); Glucose 108 mg/dL (83-110); Protein, Total 7.9 g/dL (5.8-8.1)
[2021-09-06] MEDS ORDERED: Cefepime 2 GM VIAL ONE (12:20)
[2021-09-06] MEDS ORDERED: VANCOMYCIN 2 GRAM/500 ML BAG 2 GM in Premix Bag 1 BAG IVPB SCH (12:30)
[2021-09-06 12:42] LABS: SARS-CoV-2 NAA Rapid Test Not Detected (NotDetected)
[2021-09-06] MEDS ORDERED: Acetaminophen 325 MG TAB PO PRN (13:51)
[2021-09-06] MEDS ORDERED: Acetaminophen 650 MG Suppository PR PRN (13:51)
[2021-09-06] MEDS ORDERED: Ondansetron PF 4 MG/2 ML Vial IVP PRN (13:51)
[2021-09-06] MEDS ORDERED: GUAIFENESIN SF SOLN 200 MG/10 ML UDCUP PO PRN (14:01)
[2021-09-06 14:52] LABS: Lactic Acid 2.1 mmol/L (0.5-2.2)
[2021-09-06] MEDS ORDERED: Benzonatate 100 MG CAP PO SCH ×2 (15:00→21:00)
[2021-09-06] MEDS ORDERED: Baclofen 10 MG TAB PO SCH (15:00)
[2021-09-06] MEDS ORDERED: Acetaminophen 325 MG TAB PER TUBE PRN (16:30)
[2021-09-06] MEDS ORDERED: GUAIFENESIN SF SOLN 200 MG/10 ML UDCUP PER TUBE PRN (16:30)
[2021-09-06 18:26] VITALS: BMI 30.6
[2021-09-06 18:29] LABS: Bacteria/HPF None Seen HPF (None Seen); Bilirubin Negative (Negative); Blood, Urine Trace (Negative); Clarity Clear (Clear); Glucose, Urine (Dipstick) Normal (Negative); Ketone, Urine Negative (Negative); Leukocyte Negative Leu/uL (Negative); Nitrite Negative (Negative); Protein, Urine (Dipstick) 10 mg/dL (Neg-Trace); RBC/HPF 0-3 HPF (0-3); Squamous Epithelial 0-3 HPF (0-3); Urobilinogen Normal mg/dL (Less than 2); WBC/HPF 0-3 HPF (0-3); pH, Urine 7.5 (5.0-9.0)
[2021-09-06 18:31] LABS: Urine Culture Reflex No No
[2021-09-06] MEDS: Gabapentin 300 MG CAP FS SCH (22:21)
[2021-09-06] MEDS: Metoprolol Tartrate 25 MG TAB PER TUBE SCH (22:22)
[2021-09-06] MEDS: Heparin 5,000 UNITS/ML VIAL SC SCH (22:22)
[2021-09-06] MEDS: Baclofen 10 MG TAB PER TUBE SCH (22:22)
[2021-09-06] MEDS: Amlodipine 5 MG TAB PER TUBE SCH (22:23)
[2021-09-07] MEDS ORDERED: Methyl Salicylate/Menthol 85 GM TUBE TOP PRN (00:02)
[2021-09-07 04:50] LABS: Anion Gap 13 mmol/L (10-20); BUN (Urea Nitrogen) 17 mg/dL (8.4-25.7); Calc. Creatinine Clearance 68 mL/min (70-130); Calcium 8.5 mg/dL (7.8-10.44); Carbon Dioxide 23 mmol/L (23-31); Chloride 107 mmol/L (98-107); Glucose 75 mg/dL (83-110); Potassium 4.5 mmol/L (3.5-5.1); Sodium 138 mmol/L (136-145)
[2021-09-07 04:54] LABS: #Eosinphils 0.5 thou/uL (0.0-0.7); #Lymphocytes 1.1 thou/uL (1.20-3.40); #Monocytes 0.5 thou/uL (0.11-0.59); #Neutrophils 7.6 thou/uL (1.40-6.50); %Basophils 0.2 % (0.0-1.0); %Eosinophils 4.8 % (0.0-10.0); %Lymphocytes 11.3 % (21.0-51.0); %Monocytes 4.7 % (0.0-10.0); %Neutrophils 79.1 % (42.0-75.0); Hemoglobin 12.2 g/dL (14.0-18.0); Mean Corpuscular HGB CONC 33.2 g/dL (32.0-36.0); Mean Corpuscular Hemoglobin 33.5 pg (27.0-31.0); Mean Platelet Volume 8.6 fL (7.4-10.4); Platelet Count 135 thou/uL (130-400); RBC Distribution Width 13.3 % (11.5-14.5); Red Blood Cell (RBC) Count 3.63 mill/uL (4.70-6.10); White Blood Cell (WBC) Count 9.7 thou/uL (4.8-10.8)
[2021-09-07] MEDS: Gabapentin 300 MG CAP FS SCH ×2 (08:45→21:07)
[2021-09-07] MEDS: Heparin 5,000 UNITS/ML VIAL SC SCH ×2 (08:45→21:11)
[2021-09-07] MEDS: Aspirin Chewable 81 MG TAB PER TUBE SCH (08:45)
[2021-09-07] MEDS: Metoprolol Tartrate 25 MG TAB PER TUBE SCH ×2 (08:46→21:06)
[2021-09-07] MEDS: Cyanocobalamin (Vitamin B-12) 1,000 MCG TAB PER TUBE SCH (08:46)
[2021-09-07] MEDS: Citalopram 20 MG TAB PER TUBE SCH (08:46)
[2021-09-07] MEDS: Baclofen 10 MG TAB PER TUBE SCH ×3 (08:46→21:08)
[2021-09-07] MEDS: RILUZOLE 50 MG PO SCH ×2 (14:38→21:25)
[2021-09-07] MEDS: Amlodipine 5 MG TAB PER TUBE SCH (21:07)
[2021-09-08] MEDS: Aspirin Chewable 81 MG TAB PER TUBE SCH (08:21)
[2021-09-08] MEDS: Baclofen 10 MG TAB PER TUBE SCH ×3 (08:21→20:17)
[2021-09-08] MEDS: Cyanocobalamin (Vitamin B-12) 1,000 MCG TAB PER TUBE SCH (08:21)
[2021-09-08] MEDS: Metoprolol Tartrate 25 MG TAB PER TUBE SCH ×2 (08:21→20:15)
[2021-09-08] MEDS: Gabapentin 300 MG CAP FS SCH ×2 (08:21→20:16)
[2021-09-08] MEDS: Citalopram 20 MG TAB PER TUBE SCH (08:21)
[2021-09-08] MEDS: RILUZOLE 50 MG PO SCH ×2 (08:22→20:19)
[2021-09-08] MEDS: Heparin 5,000 UNITS/ML VIAL SC SCH ×2 (08:22→20:26)
[2021-09-08 16:18] VITALS: TEMP 97.3
[2021-09-08] MEDS: Amlodipine 5 MG TAB PER TUBE SCH ×2 (20:15→20:17)
[2021-09-08 20:20] VITALS: BP 193/91
== END 2021-09-08 21:45 | disposition home or self-care (01) | DRG 177 ==
LOC: ERS 11:28 → 2NO 13:41
PROVIDERS: ADMIT Internal Medicine; ATTEND Internal Medicine
PROC: 0D20XUZ Change Feeding Device in Upper Intestinal Tract, External Approach (ICD-10-PCS; principal; 2021-09-06)
DX: J69.0 Pneumonitis due to inhalation of food and vomit (principal); J96.01 Acute respiratory failure with hypoxia; R53.2 Functional quadriplegia; E87.2 Acidosis; K94.23 Gastrostomy malfunction; G12.21 Amyotrophic lateral sclerosis; R65.10 Systemic inflammatory response syndrome (SIRS) of non-infectious origin without acute organ dysfunction; Z20.822 Contact with and (suspected) exposure to COVID-19; Y83.3 Surgical operation with formation of external stoma as the cause of abnormal reaction of the patient, or of later complication, without mention of misadventure at the time of the procedure; R13.10 Dysphagia, unspecified; E78.5 Hyperlipidemia, unspecified; F41.9 Anxiety disorder, unspecified; E78.2 Mixed hyperlipidemia; Z88.5 Allergy status to narcotic agent; Z88.8 Allergy status to other drugs, medicaments and biological substances; Z74.01 Bed confinement status; Z86.16 Personal history of COVID-19; Z79.899 Other long term (current) drug therapy
CPT/HCPCS: 36415; 71045; 71250; 74177; 80048; 80053; 81001; 83605; 83880; 84484; 85025; 87040; 87633; 93005; 94640; 96365; 96367; J0692; J1644; J1956; J3370; J7030; J7620

== ENCOUNTER 2021-10-22 23:36 | Emergency (ER) | payer MEDICARE, BC ==
[2021-10-23 00:16] LABS: #Eosinphils 0.7 thou/uL (0.0-0.7); #Lymphocytes 0.8 thou/uL (1.20-3.40); #Monocytes 0.3 thou/uL (0.11-0.59); #Neutrophils 6.6 thou/uL (1.40-6.50); %Basophils 0.4 % (0.0-1.0); %Eosinophils 8.2 % (0.0-10.0); %Lymphocytes 9.4 % (21.0-51.0); %Monocytes 3.9 % (0.0-10.0); %Neutrophils 78.1 % (42.0-75.0); Hemoglobin 12.7 g/dL (14.0-18.0); Mean Corpuscular HGB CONC 34.2 g/dL (32.0-36.0); Mean Corpuscular Hemoglobin 34.1 pg (27.0-31.0); Mean Corpuscular Volume 99.6 fL (78.0-98.0); Platelet Count 154 thou/uL (130-400); RBC Distribution Width 13.6 % (11.5-14.5); Red Blood Cell (RBC) Count 3.73 mill/uL (4.70-6.10); White Blood Cell (WBC) Count 8.5 thou/uL (4.8-10.8)
[2021-10-23 00:31] LABS: ALT (SGPT) 10 U/L (8-55); AST (SGOT) 17 U/L (5-34); Albumin 3.9 g/dL (3.4-4.8); Alkaline Phosphatase 63 U/L (40-110); Anion Gap 16 mmol/L (10-20); BUN (Urea Nitrogen) 22 mg/dL (8.4-25.7); Bilirubin, Total 0.6 mg/dL (0.2-1.2); Calc. Creatinine Clearance 0 mL/min (70-130); Calcium 8.9 mg/dL (7.8-10.44); Carbon Dioxide 22 mmol/L (23-31); Chloride 104 mmol/L (98-107); Estimated GFR 76; Globulin 3.3 g/dL (2.4-3.5); Glucose 115 mg/dL (83-110); Potassium 4.7 mmol/L (3.5-5.1); Protein, Total 7.2 g/dL (5.8-8.1); Sodium 137 mmol/L (136-145)
[2021-10-23 03:04] LABS: Troponin I 0.019 ng/mL (< 0.028)
== END 2021-10-23 03:38 | disposition home or self-care (01) ==
LOC: ERS 23:36
DX: U07.1 COVID-19 (principal); I10 Essential (primary) hypertension; E78.5 Hyperlipidemia, unspecified
CPT/HCPCS: 36415; 71045; 80053; 84484; 85025; 94640; J7620

== ENCOUNTER 2022-01-26 18:10 | Emergency (ER) | payer MEDICARE, BC ==
[2022-01-26 18:36] LABS: #Eosinphils 0.5 thou/uL (0.0-0.7); #Lymphocytes 1.4 thou/uL (1.20-3.40); #Monocytes 0.4 thou/uL (0.11-0.59); #Neutrophils 6.7 thou/uL (1.40-6.50); %Basophils 0.2 % (0.0-1.0); %Eosinophils 5.6 % (0.0-10.0); %Lymphocytes 15.4 % (21.0-51.0); %Monocytes 4.6 % (0.0-10.0); %Neutrophils 74.1 % (42.0-75.0); Hemoglobin 13.6 g/dL (14.0-18.0); Mean Corpuscular HGB CONC 32.7 g/dL (32.0-36.0); Mean Corpuscular Hemoglobin 32.2 pg (27.0-31.0); Mean Corpuscular Volume 98.5 fl (78.0-98.0); Mean Platelet Volume 8.9 fL (7.4-10.4); Platelet Count 137 thou/uL (130-400); Red Blood Cell (RBC) Count 4.22 mill/uL (4.70-6.10)
[2022-01-26 18:51] LABS: ALT (SGPT) 13 U/L (8-55); AST (SGOT) 18 U/L (5-34); Albumin 4.2 g/dL (3.4-4.8); Alkaline Phosphatase 71 U/L (40-110); Anion Gap 13 mmol/L (10-20); BUN (Urea Nitrogen) 13 mg/dL (8.4-25.7); Bilirubin, Total 0.6 mg/dL (0.2-1.2); Calc. Creatinine Clearance 0 mL/min (70-130); Calcium 9.4 mg/dL (7.8-10.44); Carbon Dioxide 25 mmol/L (23-31); Chloride 105 mmol/L (98-107); Estimated GFR 73; Globulin 3.2 g/dL (2.4-3.5); Glucose 94 mg/dL (83-110); Potassium 4.2 mmol/L (3.5-5.1); Protein, Total 7.4 g/dL (5.8-8.1); Sodium 139 mmol/L (136-145)
[2022-01-26 20:08] LABS: Bacteria/HPF 3+ HPF (None Seen); Bilirubin Negative (Negative); Blood, Urine Negative (Negative); Clarity Clear (Clear); Glucose, Urine (Dipstick) Normal (Negative); Ketone, Urine Negative (Negative); Leukocyte 75 Leu/uL (Negative); Nitrite Negative (Negative); Protein, Urine (Dipstick) Negative (Neg-Trace); RBC/HPF 0-3 HPF (0-3); Specific Gravity, Urine 1.008 (1.002-1.036); Squamous Epithelial 0-3 HPF (0-3); Urobilinogen Normal mg/dL (Less than 2)
== END 2022-01-26 21:00 | disposition home or self-care (01) ==
LOC: ERS 18:10
DX: N39.0 Urinary tract infection, site not specified (principal); E78.5 Hyperlipidemia, unspecified; I10 Essential (primary) hypertension
CPT/HCPCS: 71045; 80053; 81003; 81015; 85025; 87077; 87086; 93005

== ENCOUNTER 2022-07-28 12:20 | Emergency (ER) | payer MEDICARE, OTHER ==
[~2022-07-28 12:20] MED LIST: GASTROGRAFIN 30 ML BOT ONE
== END 2022-07-28 14:13 | disposition home or self-care (01) ==
LOC: ERS 12:20
DX: K94.23 Gastrostomy malfunction (principal); E78.5 Hyperlipidemia, unspecified; I10 Essential (primary) hypertension
CPT/HCPCS: 74018; Q9963

== ENCOUNTER 2023-01-16 17:28 | Inpatient (IN) | payer MEDICARE, BC ==
[~2023-01-16 17:28] MED LIST changes: -GASTROGRAFIN 30 ML BOT ONE; +Iopamidol-370 76% 500 ML MDV (1 ML CHARGE) ONE
[2023-01-16] MEDS ORDERED: Acetaminophen 650 MG Suppository ONE (17:40)
[2023-01-16] MEDS ORDERED: Cefepime 2 GM VIAL ONE (17:49)
[2023-01-16 17:50] LABS: Base Excess (BEa) -6.7 mEq/L (-2.0 to +3.0); CO2 Tension 38.7 mmHg (35.0-45.0); Carboxyhemoglobin (COHb) 3.2 gm% (0.0-3.0); Hematocrit-ABG 35 % (42.0-52.0); Hemoglobin (Hb) 11.8 g/dL (14.0-18.0); Potassium - ABG Lab 4.41 mmol/L (3.70-5.30); pH, Arterial 7.309 (7.35-7.45)
[2023-01-16 17:54] LABS: ALV-art Gradient 134.925 mmHg (0-20); Puncture Site LBA
[2023-01-16] MEDS ORDERED: Vancomycin (BATCH) 1.25 GM in Premix 1 BAG IVPB SCH (18:00)
[2023-01-16 18:11] LABS: #Eosinphils 0.3 thou/uL (0.0-0.7); #Monocytes 0.3 thou/uL (0.11-0.59); #Neutrophils 9.4 thou/uL (1.40-6.50); %Basophils 0.3 % (0.0-1.0); %Eosinophils 2.7 % (0.0-10.0); %Monocytes 2.6 % (0.0-10.0); %Neutrophils 89.1 % (42.0-75.0); Hematocrit 39.4 % (42.0-52.0); Hemoglobin 12.7 g/dL (14.0-18.0); Mean Corpuscular HGB CONC 32.2 g/dL (32.0-36.0); Mean Corpuscular Hemoglobin 32.7 pg (27.0-31.0); Mean Corpuscular Volume 101.5 fl (78.0-98.0); Mean Platelet Volume 11.1 fL (7.4-10.4); Platelet Count 153 10x3/uL (130-400); RBC Distribution Width 16.7 % (11.5-14.5); Red Blood Cell (RBC) Count 3.88 mill/uL (4.70-6.10); White Blood Cell (WBC) Count 10.6 10x3/uL (4.8-10.8)
[2023-01-16 18:37] LABS: Troponin I 0.031 ng/mL (< 0.028)
[2023-01-16 18:40] LABS: ALT (SGPT) 12 U/L (8-55); AST (SGOT) 15 U/L (5-34); Albumin 3.8 g/dL (3.4-4.8); Alkaline Phosphatase 81 U/L (40-110); Anion Gap 20 mmol/L (10-20); BUN (Urea Nitrogen) 58 mg/dL (8.4-25.7); Bilirubin, Total 0.5 mg/dL (0.2-1.2); Calc. Creatinine Clearance 0 mL/min (70-130); Calcium 8.4 mg/dL (7.8-10.44); Carbon Dioxide 18 mmol/L (23-31); Chloride 108 mmol/L (98-107); Estimated GFR 70; Globulin 2.5 g/dL (2.4-3.5); Glucose 69 mg/dL (83-110); Lipase 60 U/L (8-78); Magnesium 1.7 mg/dL (1.6-2.6); Potassium 4.7 mmol/L (3.5-5.1); Protein, Total 6.3 g/dL (5.8-8.1); Sodium 141 mmol/L (136-145)
[2023-01-16 19:00] LABS: SARS-CoV-2 NAA Rapid Test Not Detected (NotDetected)
[2023-01-16] MEDS ORDERED: fentaNYL 50 mcg/mL 1 mL Vial ONE ×2 (19:49→22:48)
[2023-01-16] MEDS ORDERED: Ketorolac Tromethamine 30 MG/ML VIAL ONE (20:26)
[2023-01-16 21:14] LABS: Lactic Acid 2.7 mmol/L (0.5-2.2)
[2023-01-16 21:59] LABS: Bacteria/HPF 4+ HPF (None Seen); Bilirubin Negative (Negative); Blood, Urine 3+ (Negative); CAUTI Indications for Culture Alt mental st,lethar; Clarity Turbid (Clear); Glucose, Urine (Dipstick) Normal (Negative); Ketone, Urine Negative (Negative); Leukocyte 250 Leu/uL (Negative); Nitrite 2+ (Negative); Protein, Urine (Dipstick) 70 mg/dL (Neg-Trace); RBC/HPF Greater than 50 HPF (0-3); Renal Epithelial 0-3 HPF (None Seen); Specific Gravity, Urine 1.035 (1.002-1.036); Squamous Epithelial 0-3 HPF (0-3); Urine Culture Reflex Yes Yes; Urobilinogen Normal mg/dL (Less than 2); WBC/HPF 21-50 HPF (0-3); pH, Urine 5.5 (5.0-9.0)
[2023-01-16 22:12] LABS: Troponin I 0.409 ng/mL (< 0.028)
[2023-01-16] MEDS ORDERED: NOREPINEPHRINE 8 MG/250 ML-D5W 0 ML ONE (22:44)
[2023-01-16] MEDS ORDERED: Midazolam HCl 2 mg/2 ml Vial ONE (22:48)
[2023-01-16] MEDS ORDERED: Norepinephrine 4 MG/4 ML VIAL ONE (23:14)
[2023-01-16] MEDS ORDERED: Rocuronium Bromide 10 MG/ML (10ML VIAL) ONE (23:38)
[2023-01-16] MEDS ORDERED: PHENYLEPHRINE-NS 100 MCG/ML 10 ML SYRINGE ONE (23:38)
[2023-01-16] MEDS ORDERED: PROPOFOL 200 MG/20 ML VIAL ONE (23:38)
[2023-01-17] MEDS ORDERED: Acetaminophen 650 MG Suppository PR PRN (00:22)
[2023-01-17] MEDS ORDERED: Electrolyte Replacement Protocol 1 EACH IVPB PRN (00:22)
[2023-01-17] MEDS ORDERED: Ipratropium/Albuterol 3 ML NEB NEB PRN ×2 (00:22→21:14)
[2023-01-17] MEDS ORDERED: Ventilator Sedation Protocol 1 EACH FS SCH (00:30)
[2023-01-17] MEDS ORDERED: Propofol 1,000 MG/100 ML VIAL IV PRN (00:30)
[2023-01-17] MEDS ORDERED: Dextrose 5%-Lactated Ringers 1,000 ML IV SCH ×2 (00:30→01:00)
[2023-01-17] MEDS ORDERED: Morphine 2 MG/ML VIAL SLOW IVP PRN (00:30)
[2023-01-17] MEDS ORDERED: Propofol BOLUS 1,000 MG/100 ML VIAL IV PRN (00:30)
[2023-01-17] MEDS ORDERED: Fentanyl BOLUS 250 ML IVPB PRN (00:30)
[2023-01-17] MEDS: NOREPINEPHRINE 8 MG/250 ML-D5W 250 ML IVPB PRN ×4 (00:33→15:17)
[2023-01-17 00:51] LABS: CO2 Tension 35.8 mmHg (35.0-45.0); Calcium, Ionized (arterial) 1.09 mmol/L (1.12-1.30); Carboxyhemoglobin (COHb) 2.5 gm% (0.0-3.0); Hematocrit-ABG 32 % (42.0-52.0); O2 Tension (PaO2), arterial 375.9 mmHg (> 70.0); Potassium - ABG Lab 3.97 mmol/L (3.70-5.30); pH, Arterial 7.228 (7.35-7.45)
[2023-01-17 00:52] LABS: Actual Bicarbonate (HCO3a) 14.6 mEq/L (22-28); Puncture Site RRA
[2023-01-17] MEDS ORDERED: Magnesium 2 GM/50 ML(in water) 2 GM in Premix 1 BAG IVPB SCH (01:00)
[2023-01-17] MEDS ORDERED: Sodium Bicarb 50 MEQ/50 ML Abboject 8.4% SYRINGE IVP SCH (01:15)
[2023-01-17 01:44] LABS: Lactic Acid 3.2 mmol/L (0.5-2.2)
[2023-01-17] MEDS ORDERED: Lactated Ringer's 500 ML IV SCH ×2 (01:45→02:30)
[2023-01-17 01:52] LABS: Troponin I 0.813 ng/mL (< 0.028)
[2023-01-17] MEDS ORDERED: Hydrocortisone Sod Succ/PF 100 mg/2 ml Vial IVP SCH (02:30)
[2023-01-17] MEDS ORDERED: Vasopressin 20 UNITS in Sodium Chloride 0.9% 50 ML IV SCH (03:00)
[2023-01-17 05:05] LABS: Troponin I 0.867 ng/mL (< 0.028)
[2023-01-17] MEDS: Fentanyl CADD 100 ML IV SCH (05:30)
[2023-01-17] MEDS ORDERED: Cefepime 2 GM in Sodium Chloride 0.9% 100 ML IVPB SCH (06:00)
[2023-01-17 08:11] LABS: Actual Bicarbonate (HCO3a) 16.9 mEq/L (22-28); Base Excess (BEa) -7.9 mEq/L (-2.0 to +3.0); CO2 Tension 32.2 mmHg (35.0-45.0); Calcium, Ionized (arterial) 1.09 mmol/L (1.12-1.30); Carboxyhemoglobin (COHb) 2.3 gm% (0.0-3.0); Hematocrit-ABG 32 % (42.0-52.0); Hemoglobin (Hb) 10.8 g/dL (14.0-18.0); O2 Tension (PaO2), arterial 129.4 mmHg (> 70.0); Potassium - ABG Lab 4.05 mmol/L (3.70-5.30); pH, Arterial 7.339 (7.35-7.45)
[2023-01-17 08:12] LABS: Puncture Site LBA
[2023-01-17 08:36] LABS: Lactic Acid 4.6 mmol/L (0.5-2.2)
[2023-01-17] MEDS ORDERED: FLU VACC QS2023(65UP)/MF59C/PF 60 MCG/0.5 ML SYRINGE IM ONE (09:00)
[2023-01-17] MEDS ORDERED: Vancomycin 1 GM in Premix 1 BAG IVPB SCH (09:00)
[2023-01-17] MEDS: Famotidine/PF 20 mg/2ml Vial SLOW IVP SCH ×2 (09:04→20:49)
[2023-01-17] MEDS: Hydrocortisone Sod Succ/PF 100 mg/2 ml Vial IVP SCH ×3 (09:04→20:49)
[2023-01-17] MEDS: Baclofen 10 MG TAB PO SCH ×2 (09:51→20:27)
[2023-01-17] MEDS: Citalopram 20 MG TAB PER TUBE SCH ×2 (09:52→20:27)
[2023-01-17] MEDS: Gabapentin 300 MG CAP PER TUBE SCH ×3 (09:54→23:55)
[2023-01-17] MEDS ORDERED: Vancomycin (BATCH) 1.5 GM in Premix 1 BAG IVPB SCH (18:00)
[2023-01-17] MEDS: Cefepime 1 GM in Sodium Chloride 0.9% 100 ML IVPB SCH (18:01)
[2023-01-17] MEDS: Lorazepam 2 MG/ML VIAL SLOW IVP PRN (20:49)
[2023-01-18] MEDS: Hydrocortisone Sod Succ/PF 100 mg/2 ml Vial IVP SCH ×4 (03:04→22:03)
[2023-01-18 04:39] LABS: Mean Corpuscular HGB CONC 33.3 g/dL (32.0-36.0); Mean Corpuscular Hemoglobin 32.4 pg (27.0-31.0); Mean Corpuscular Volume 97.3 fl (78.0-98.0); Mean Platelet Volume 10.9 fL (7.4-10.4); Platelet Count 152 10x3/uL (130-400); RBC Distribution Width 17.3 % (11.5-14.5); Red Blood Cell (RBC) Count 2.99 mill/uL (4.70-6.10); White Blood Cell (WBC) Count 40.2 10x3/uL (4.8-10.8)
[2023-01-18 05:07] LABS: ALT (SGPT) 13 U/L (8-55); AST (SGOT) 25 U/L (5-34); Alkaline Phosphatase 75 U/L (40-110); Anion Gap 13 mmol/L (10-20); BUN (Urea Nitrogen) 43 mg/dL (8.4-25.7); Bilirubin, Total 0.3 mg/dL (0.2-1.2); Calc. Creatinine Clearance 69 mL/min (70-130); Carbon Dioxide 21 mmol/L (23-31); Chloride 111 mmol/L (98-107); Estimated GFR 81; Globulin 2.1 g/dL (2.4-3.5); Glucose 140 mg/dL (83-110); Potassium 3.4 mmol/L (3.5-5.1); Protein, Total 5.1 g/dL (5.8-8.1); Sodium 142 mmol/L (136-145)
[2023-01-18 05:12] LABS: Delete Auto Diff?? YES; Manual Diff?? YES
[2023-01-18] MEDS: Cefepime 1 GM in Sodium Chloride 0.9% 100 ML IVPB SCH ×2 (05:38→17:40)
[2023-01-18] MEDS: Gabapentin 300 MG CAP PER TUBE SCH ×3 (05:38→21:13)
[2023-01-18 06:12] LABS: Band 45 % (5-11); CellaVision Operator ID LAB.JMM; Lymphocytes 1 % (21-51); Macrocytosis SLIGHT = 6-15 cells HPF (0-5); Neutrophil 55 % (42-75); Platelet Adequacy Comment Platelets Normal; Smudge Cells 10.9 %; Total Cell Count 101
[2023-01-18] MEDS: Fentanyl CADD 100 ML IV SCH (07:59)
[2023-01-18] MEDS: Sertraline 100 MG TAB PO SCH (08:02)
[2023-01-18] MEDS: Famotidine/PF 20 mg/2ml Vial SLOW IVP SCH ×2 (08:02→21:13)
[2023-01-18] MEDS: Potassium Chloride 20 MEQ in Premix 1 BAG IVPB SCH ×2 (08:03→09:35)
[2023-01-18] MEDS: busPIRone HCl 5 MG TAB PER TUBE SCH ×2 (10:21→21:13)
[2023-01-18 12:11] LABS: O2 Tension (PaO2), arterial 30.6 mmHg (> 70.0)
[2023-01-18 12:28] LABS: Hematocrit 29.1 % (42.0-52.0); Hemoglobin 9.7 g/dL (14.0-18.0)
[2023-01-18] MEDS: NOREPINEPHRINE 8 MG/250 ML-D5W 250 ML IVPB PRN (12:38)
[2023-01-19] MEDS: Hydrocortisone Sod Succ/PF 100 mg/2 ml Vial IVP SCH ×4 (02:44→21:11)
[2023-01-19 04:12] LABS: Hematocrit 27.1 % (42.0-52.0); Mean Corpuscular HGB CONC 33.2 g/dL (32.0-36.0); Mean Corpuscular Hemoglobin 32.6 pg (27.0-31.0); Mean Corpuscular Volume 98.2 fl (78.0-98.0); Mean Platelet Volume 10.8 fL (7.4-10.4); Platelet Count 125 10x3/uL (130-400); RBC Distribution Width 17.5 % (11.5-14.5); Red Blood Cell (RBC) Count 2.76 mill/uL (4.70-6.10); White Blood Cell (WBC) Count 26.4 10x3/uL (4.8-10.8)
[2023-01-19 04:35] LABS: ALT (SGPT) 12 U/L (8-55); AST (SGOT) 15 U/L (5-34); Albumin 2.9 g/dL (3.4-4.8); Alkaline Phosphatase 68 U/L (40-110); Anion Gap 13 mmol/L (10-20); BUN (Urea Nitrogen) 50 mg/dL (8.4-25.7); Bilirubin, Total 0.3 mg/dL (0.2-1.2); Calc. Creatinine Clearance 75 mL/min (70-130); Calcium 7.8 mg/dL (7.8-10.44); Carbon Dioxide 21 mmol/L (23-31); Chloride 114 mmol/L (98-107); Estimated GFR 88; Glucose 145 mg/dL (83-110); Potassium 3.5 mmol/L (3.5-5.1); Protein, Total 4.9 g/dL (5.8-8.1); Sodium 144 mmol/L (136-145)
[2023-01-19 04:39] LABS: Manual Diff?? YES
[2023-01-19 04:40] LABS: Delete Auto Diff?? YES
[2023-01-19] MEDS: Lorazepam 2 MG/ML VIAL SLOW IVP PRN (04:52)
[2023-01-19 05:07] LABS: Band 5 % (5-11); CellaVision Operator ID lab.abc; Lymphocytes 4 % (21-51); Monocytes 3 % (0-10); Neutrophil 88 % (42-75); Platelet Adequacy Comment Platelets Normal; RBC Morphology Within Normal Limits; Smudge Cells 22.8 %; Total Cell Count 101
[2023-01-19] MEDS: Fentanyl CADD 100 ML IV SCH (05:59)
[2023-01-19] MEDS: Gabapentin 300 MG CAP PER TUBE SCH ×3 (05:59→21:10)
[2023-01-19] MEDS: Cefepime 1 GM in Sodium Chloride 0.9% 100 ML IVPB SCH ×2 (05:59→16:48)
[2023-01-19] MEDS ORDERED: Potassium Bicarbonate/Cit Ac 20 MEQ TAB PER TUBE SCH (08:00)
[2023-01-19] MEDS: busPIRone HCl 5 MG TAB PER TUBE SCH ×2 (08:56→21:10)
[2023-01-19] MEDS: Famotidine/PF 20 mg/2ml Vial SLOW IVP SCH ×2 (08:56→21:11)
[2023-01-19] MEDS: Sertraline 100 MG TAB PO SCH (08:56)
[2023-01-19] MEDS ORDERED: Magnesium 2 GM/50 ML(in water) 2 GM in Premix 1 BAG IVPB SCH (09:00)
[2023-01-19 14:29] LABS: Potassium 3.9 mmol/L (3.5-5.1)
[2023-01-20 04:09] LABS: #Monocytes 0.5 thou/uL (0.11-0.59); #Neutrophils 18.2 thou/uL (1.40-6.50); %Basophils 0.1 % (0.0-1.0); %Monocytes 2.3 % (0.0-10.0); %Neutrophils 90.2 % (42.0-75.0); Hematocrit 27.7 % (42.0-52.0); Hemoglobin 8.7 g/dL (14.0-18.0); Mean Corpuscular HGB CONC 31.4 g/dL (32.0-36.0); Mean Platelet Volume 10.7 fL (7.4-10.4); RBC Distribution Width 17.3 % (11.5-14.5); Red Blood Cell (RBC) Count 2.72 mill/uL (4.70-6.10); White Blood Cell (WBC) Count 20.2 10x3/uL (4.8-10.8)
[2023-01-20] MEDS: Hydrocortisone Sod Succ/PF 100 mg/2 ml Vial IVP SCH ×3 (04:18→17:58)
[2023-01-20 04:29] LABS: ALT (SGPT) 13 U/L (8-55); AST (SGOT) 12 U/L (5-34); Alkaline Phosphatase 63 U/L (40-110); Anion Gap 14 mmol/L (10-20); BUN (Urea Nitrogen) 48 mg/dL (8.4-25.7); Bilirubin, Total 0.4 mg/dL (0.2-1.2); Calc. Creatinine Clearance 78 mL/min (70-130); Calcium 7.7 mg/dL (7.8-10.44); Carbon Dioxide 23 mmol/L (23-31); Chloride 114 mmol/L (98-107); Estimated GFR 89; Globulin 2.1 g/dL (2.4-3.5); Glucose 150 mg/dL (83-110); Magnesium 2.2 mg/dL (1.6-2.6); Potassium 3.8 mmol/L (3.5-5.1); Protein, Total 5.1 g/dL (5.8-8.1); Sodium 147 mmol/L (136-145)
[2023-01-20] MEDS: Gabapentin 300 MG CAP PER TUBE SCH ×3 (05:55→21:22)
[2023-01-20] MEDS: Cefepime 1 GM in Sodium Chloride 0.9% 100 ML IVPB SCH (05:56)
[2023-01-20 07:08] LABS: Mean Corpuscular Volume 101.8 fl (78.0-98.0); Platelet Count 126 10x3/uL (130-400)
[2023-01-20] MEDS: Fentanyl CADD 100 ML IV SCH (09:26)
[2023-01-20] MEDS: Famotidine/PF 20 mg/2ml Vial SLOW IVP SCH ×2 (09:27→21:22)
[2023-01-20] MEDS: busPIRone HCl 5 MG TAB PER TUBE SCH ×2 (09:27→21:22)
[2023-01-20] MEDS: Sertraline 100 MG TAB PO SCH (09:27)
[2023-01-20] MEDS: cefTRIAXone\\ROCEPHIN 1 GM in Sodium Chloride 0.9% 100 ML IVPB SCH (17:09)
[2023-01-21] MEDS: Hydrocortisone Sod Succ/PF 100 mg/2 ml Vial IVP SCH ×3 (02:21→18:03)
[2023-01-21 04:33] LABS: #Monocytes 0.4 thou/uL (0.11-0.59); #Neutrophils 11.2 thou/uL (1.40-6.50); %Basophils 0.2 % (0.0-1.0); %Lymphocytes 7.6 % (21.0-51.0); %Monocytes 3.4 % (0.0-10.0); %Neutrophils 87.2 % (42.0-75.0); Hematocrit 29.1 % (42.0-52.0); Hemoglobin 9.2 g/dL (14.0-18.0); Mean Corpuscular HGB CONC 31.6 g/dL (32.0-36.0); Mean Corpuscular Hemoglobin 32.6 pg (27.0-31.0); Mean Corpuscular Volume 103.2 fl (78.0-98.0); Mean Platelet Volume 11.1 fL (7.4-10.4); Platelet Count 126 10x3/uL (130-400); RBC Distribution Width 16.6 % (11.5-14.5); Red Blood Cell (RBC) Count 2.82 mill/uL (4.70-6.10); White Blood Cell (WBC) Count 12.8 10x3/uL (4.8-10.8)
[2023-01-21 04:57] LABS: ALT (SGPT) 17 U/L (8-55); AST (SGOT) 15 U/L (5-34); Albumin 3.2 g/dL (3.4-4.8); Alkaline Phosphatase 64 U/L (40-110); Anion Gap 14 mmol/L (10-20); BUN (Urea Nitrogen) 48 mg/dL (8.4-25.7); Bilirubin, Total 0.3 mg/dL (0.2-1.2); Calc. Creatinine Clearance 82 mL/min (70-130); Calcium 7.7 mg/dL (7.8-10.44); Carbon Dioxide 22 mmol/L (23-31); Chloride 114 mmol/L (98-107); Estimated GFR 90; Globulin 2.1 g/dL (2.4-3.5); Glucose 143 mg/dL (83-110); Potassium 3.7 mmol/L (3.5-5.1); Protein, Total 5.3 g/dL (5.8-8.1); Sodium 146 mmol/L (136-145)
[2023-01-21] MEDS: Gabapentin 300 MG CAP PER TUBE SCH ×3 (06:13→21:27)
[2023-01-21] MEDS: Sertraline 100 MG TAB PO SCH (09:58)
[2023-01-21] MEDS: busPIRone HCl 5 MG TAB PER TUBE SCH ×2 (09:58→21:27)
[2023-01-21] MEDS: Famotidine/PF 20 mg/2ml Vial SLOW IVP SCH (10:53)
[2023-01-21 13:38] VITALS: BMI 28.6
[2023-01-21] MEDS: Fentanyl CADD 100 ML IV SCH (13:58)
[2023-01-21] MEDS: cefTRIAXone\\ROCEPHIN 1 GM in Sodium Chloride 0.9% 100 ML IVPB SCH (18:03)
[2023-01-21] MEDS: Famotidine 20 MG TAB PER TUBE SCH (21:28)
[2023-01-22] MEDS: Hydrocortisone Sod Succ/PF 100 mg/2 ml Vial IVP SCH ×3 (02:17→17:40)
[2023-01-22 04:19] LABS: #Monocytes 0.5 thou/uL (0.11-0.59); #Neutrophils 11.9 thou/uL (1.40-6.50); %Basophils 0.1 % (0.0-1.0); %Eosinophils 0.1 % (0.0-10.0); %Lymphocytes 7.3 % (21.0-51.0); %Monocytes 3.9 % (0.0-10.0); %Neutrophils 86.9 % (42.0-75.0); Hematocrit 28.4 % (42.0-52.0); Hemoglobin 8.8 g/dL (14.0-18.0); Mean Corpuscular Hemoglobin 32.6 pg (27.0-31.0); Mean Corpuscular Volume 105.2 fl (78.0-98.0); Mean Platelet Volume 11.3 fL (7.4-10.4); RBC Distribution Width 16.6 % (11.5-14.5); White Blood Cell (WBC) Count 13.8 10x3/uL (4.8-10.8)
[2023-01-22 04:47] LABS: ALT (SGPT) 25 U/L (8-55); AST (SGOT) 18 U/L (5-34); Albumin 3.1 g/dL (3.4-4.8); Alkaline Phosphatase 62 U/L (40-110); Anion Gap 13 mmol/L (10-20); BUN (Urea Nitrogen) 46 mg/dL (8.4-25.7); Bilirubin, Total 0.3 mg/dL (0.2-1.2); Calc. Creatinine Clearance 86 mL/min (70-130); Carbon Dioxide 27 mmol/L (23-31); Chloride 113 mmol/L (98-107); Estimated GFR 91; Globulin 2.1 g/dL (2.4-3.5); Glucose 138 mg/dL (83-110); Potassium 3.8 mmol/L (3.5-5.1); Protein, Total 5.2 g/dL (5.8-8.1); Sodium 149 mmol/L (136-145)
[2023-01-22 05:20] LABS: Platelet Count 129 10x3/uL (130-400)
[2023-01-22] MEDS: Gabapentin 300 MG CAP PER TUBE SCH ×3 (06:46→20:37)
[2023-01-22] MEDS: Famotidine 20 MG TAB PER TUBE SCH ×2 (09:41→20:37)
[2023-01-22] MEDS: Sertraline 100 MG TAB PO SCH (09:41)
[2023-01-22] MEDS: busPIRone HCl 5 MG TAB PER TUBE SCH ×2 (09:41→20:37)
[2023-01-22] MEDS: Fentanyl CADD 100 ML IV SCH (12:34)
[2023-01-23] MEDS: Hydrocortisone Sod Succ/PF 100 mg/2 ml Vial IVP SCH ×2 (02:53→10:20)
[2023-01-23] MEDS ORDERED: Fentanyl CADD 100 ML ONE (04:47)
[2023-01-23] MEDS: Gabapentin 300 MG CAP PER TUBE SCH (04:51)
[2023-01-23 07:10] VITALS: TEMP 99.2
[2023-01-23] MEDS: Famotidine 20 MG TAB PER TUBE SCH (08:24)
[2023-01-23] MEDS: busPIRone HCl 5 MG TAB PER TUBE SCH (08:25)
[2023-01-23] MEDS: Sertraline 100 MG TAB PO SCH (08:25)
[2023-01-23 15:00] VITALS: BP 178/100
== END 2023-01-23 15:35 | disposition hospice, inpatient (51) | DRG 853 ==
LOC: ERS 17:28 → ERHOLD 22:20 → CCU 01-17 00:21
PROVIDERS: ADMIT Student in an Organized Health Care Education/Training Program; ATTEND Internal Medicine
PROC: 0T748DZ Dilation of Left Kidney Pelvis with Intraluminal Device, Via Natural or Artificial Opening Endoscopic (ICD-10-PCS; principal; 2023-01-16)
PROC: BT1F1ZZ Fluoroscopy of Left Kidney, Ureter and Bladder using Low Osmolar Contrast (ICD-10-PCS; 2023-01-16)
PROC: 02H633Z Insertion of Infusion Device into Right Atrium, Percutaneous Approach (ICD-10-PCS; 2023-01-16)
PROC: B548ZZA Ultrasonography of Superior Vena Cava, Guidance (ICD-10-PCS; 2023-01-16)
PROC: 3E033XZ Introduction of Vasopressor into Peripheral Vein, Percutaneous Approach (ICD-10-PCS; 2023-01-16)
PROC: 4A133R1 Monitoring of Arterial Saturation, Peripheral, Percutaneous Approach (ICD-10-PCS; 2023-01-16)
PROC: 3E03329 Introduction of Other Anti-infective into Peripheral Vein, Percutaneous Approach (ICD-10-PCS; 2023-01-16)
PROC: 5A1955Z Respiratory Ventilation, Greater than 96 Consecutive Hours (ICD-10-PCS; 2023-01-17)
PROC: 0BH17EZ Insertion of Endotracheal Airway into Trachea, Via Natural or Artificial Opening (ICD-10-PCS; 2023-01-17)
DX: A41.59 Other Gram-negative sepsis (principal); G93.41 Metabolic encephalopathy; R65.21 Severe sepsis with septic shock; J96.00 Acute respiratory failure, unspecified whether with hypoxia or hypercapnia; I21.A1 Myocardial infarction type 2; G12.21 Amyotrophic lateral sclerosis; N13.6 Pyonephrosis; E87.0 Hyperosmolality and hypernatremia; Z66 Do not resuscitate; Z51.5 Encounter for palliative care; E78.5 Hyperlipidemia, unspecified; I10 Essential (primary) hypertension; F41.9 Anxiety disorder, unspecified; F32.A Depression, unspecified; I25.10 Atherosclerotic heart disease of native coronary artery without angina pectoris; Z20.822 Contact with and (suspected) exposure to COVID-19; D69.6 Thrombocytopenia, unspecified; R13.12 Dysphagia, oropharyngeal phase; E87.6 Hypokalemia; Z98.890 Other specified postprocedural states; Z88.8 Allergy status to other drugs, medicaments and biological substances; Z86.16 Personal history of COVID-19; Z88.5 Allergy status to narcotic agent; Z93.1 Gastrostomy status; Z74.01 Bed confinement status; Z79.82 Long term (current) use of aspirin; Z79.899 Other long term (current) drug therapy
CPT/HCPCS: 36415; 36416; 36556; 36600; 51702; 70450; 71045; 71260; 74177; 74420; 80053; 81001; 82533; 82805; 83605; 83690; 83735; 83880; 84145; 84484; 85025; 87040; 87077; 87086; 87149; 87186; 93005; 94002; 94003; 94660; 96361; 96365; 96366; 96375; C2617; J0692; J0696; J1720; J1885; J2060; J2250; J2704; J3010; J3370; J3475; J3480; J3490; J7120; Q9967; S0028

== ENCOUNTER 2023-01-23 15:13 | Inpatient (IN) | payer OTHER ==
[2023-01-23] MEDS ORDERED: Ipratropium/Albuterol 3 ML NEB NEB PRN (15:49)
[2023-01-23] MEDS ORDERED: Lorazepam 2 MG/ML VIAL SLOW IVP PRN (15:51)
[2023-01-23 15:54] VITALS: BMI 29.4
[2023-01-23] MEDS: fentaNYL 50 mcg/mL 1 mL Vial SLOW IVP PRN (15:58)
[2023-01-23] MEDS ORDERED: Senokot S 8.6-50 MG TAB PER TUBE PRN (16:00)
[2023-01-23] MEDS ORDERED: Haloperidol Lactate 5 MG/ML VIAL SLOW IVP PRN (16:00)
[2023-01-23] MEDS ORDERED: Acetaminophen 325 MG TAB PER TUBE PRN (16:00)
[2023-01-23] MEDS ORDERED: Ondansetron PF 4 MG/2 ML Vial IVP PRN (16:00)
[2023-01-23] MEDS ORDERED: Glycopyrrolate 0.2 MG/ML 5 ML SYRINGE SLOW IVP PRN (16:58)
[2023-01-23] MEDS ORDERED: Glycopyrrolate 0.4 MG/ 2 ML VIAL FS PRN (17:45)
[2023-01-23] MEDS ORDERED: GLYCOPYRROLATE/PF 0.2 MG/ML VIAL FS PRN (17:45)
[2023-01-23] MEDS: busPIRone HCl 5 MG TAB PER TUBE SCH (21:20)
[2023-01-23] MEDS: Scopolamine 1 mg/72 hour Patch TOP PRN (21:20)
[2023-01-23] MEDS: Gabapentin 300 MG CAP PER TUBE SCH (21:20)
[2023-01-23] MEDS: Lorazepam 2 MG/ML VIAL SLOW IVP PRN (21:21)
[2023-01-23] MEDS: Hydrocortisone Sod Succ/PF 100 mg/2 ml Vial IVP SCH (21:23)
[2023-01-24] MEDS: Gabapentin 300 MG CAP PER TUBE SCH ×3 (06:13→23:10)
[2023-01-24] MEDS: Sertraline 100 MG TAB PER TUBE SCH (10:10)
[2023-01-24] MEDS: Hydrocortisone Sod Succ/PF 100 mg/2 ml Vial IVP SCH (11:51)
[2023-01-24] MEDS: busPIRone HCl 5 MG TAB PER TUBE SCH (11:52)
[2023-01-24] MEDS: fentaNYL 50 mcg/mL 1 mL Vial SLOW IVP PRN (12:05)
[2023-01-24] MEDS: Lorazepam 2 MG/ML VIAL SLOW IVP PRN ×2 (14:36→18:57)
[2023-01-25] MEDS: Lorazepam 2 MG/ML VIAL SLOW IVP PRN ×4 (00:24→17:35)
[2023-01-25] MEDS: fentaNYL 50 mcg/mL 1 mL Vial SLOW IVP PRN ×4 (03:12→21:27)
[2023-01-25] MEDS: Gabapentin 300 MG CAP PER TUBE SCH ×3 (05:38→21:30)
[2023-01-25] MEDS: Sertraline 100 MG TAB PER TUBE SCH ×3 (08:40→10:33)
[2023-01-25] MEDS ORDERED: Hydrocortisone Sod Succ/PF 100 mg/2 ml Vial IVP SCH (09:00)
[2023-01-26] MEDS: Gabapentin 300 MG CAP PER TUBE SCH ×3 (06:04→21:15)
[2023-01-26] MEDS: fentaNYL 50 mcg/mL 1 mL Vial SLOW IVP PRN (06:12)
[2023-01-26] MEDS: oxyCODONE 5 MG TAB PER TUBE PRN ×3 (08:14→22:39)
[2023-01-26] MEDS: Sertraline 100 MG TAB PER TUBE SCH (08:15)
[2023-01-26] MEDS: Lorazepam 2 MG/ML VIAL SLOW IVP PRN ×3 (08:15→22:39)
[2023-01-27] MEDS: Lorazepam 2 MG/ML VIAL SLOW IVP PRN ×3 (05:10→17:52)
[2023-01-27] MEDS: oxyCODONE 5 MG TAB PER TUBE PRN ×4 (05:10→17:50)
[2023-01-27] MEDS: Gabapentin 300 MG CAP PER TUBE SCH ×3 (05:11→21:13)
[2023-01-27] MEDS: Sertraline 100 MG TAB PER TUBE SCH (08:12)
[2023-01-27] MEDS: GLYCOPYRROLATE/PF 0.2 MG/ML VIAL SLOW IVP PRN ×2 (11:55→17:52)
[2023-01-27] MEDS: Scopolamine 1 mg/72 hour Patch TOP PRN (12:40)
[2023-01-27] MEDS: fentaNYL 50 mcg/mL 1 mL Vial SLOW IVP PRN (14:11)
[2023-01-28] MEDS: Gabapentin 300 MG CAP PER TUBE SCH ×2 (05:42→12:54)
[2023-01-28 07:55] VITALS: BP 117/59; TEMP 97.4
[2023-01-28] MEDS: oxyCODONE 5 MG TAB PER TUBE PRN ×2 (08:51→12:54)
[2023-01-28] MEDS: Sertraline 100 MG TAB PER TUBE SCH (08:57)
== END 2023-01-28 15:09 | disposition hospice, home (50) | DRG 951 ==
LOC: CCU 15:13 → T4-A 19:30
PROVIDERS: ADMIT Family Medicine; ATTEND Family Medicine
DX: Z51.5 Encounter for palliative care (principal); A41.89 Other specified sepsis; I21.9 Acute myocardial infarction, unspecified; G12.21 Amyotrophic lateral sclerosis; N39.0 Urinary tract infection, site not specified; I25.10 Atherosclerotic heart disease of native coronary artery without angina pectoris; F43.10 Post-traumatic stress disorder, unspecified; Z88.8 Allergy status to other drugs, medicaments and biological substances; Z88.6 Allergy status to analgesic agent; Z93.1 Gastrostomy status
CPT/HCPCS: 36416; J1720; J2060; J3010; J3490